=== PATIENT | female | born 1980 | race Caucasian/White ===

== ENCOUNTER 2016-03-31 20:32 | Emergency (ER) | payer MEDICARE ==
[2016-03-31] MEDS ORDERED: TRAMADOL 50 MG TAB ONE (21:55)
== END 2016-03-31 22:00 | disposition home or self-care (01) ==
LOC: ER 20:32
DX: M79.632 Pain in left forearm (principal); M25.532 Pain in left wrist; M79.642 Pain in left hand; G90.512 Complex regional pain syndrome I of left upper limb; M65.30 Trigger finger, unspecified finger; Z79.899 Other long term (current) drug therapy; F17.210 Nicotine dependence, cigarettes, uncomplicated; F32.9 Major depressive disorder, single episode, unspecified; F41.1 Generalized anxiety disorder; F43.10 Post-traumatic stress disorder, unspecified; F31.9 Bipolar disorder, unspecified